=== PATIENT | male | born 1935 | race Caucasian/White ===

== ENCOUNTER 2016-08-16 15:22 | Inpatient (IN) | payer MEDICARE, OTHER ==
[~2016-08-16 15:22] MED LIST: ADULT ASPIRIN81 MG PO; ALBUTEROL; ALBUTEROL SULF8.5 GM INH; ALBUTEROL17 GM INH; ALBUTEROL2.5 MG/3 M INH; ASMANEX; ASMANEX0 IH; ASPIR-LOW81 M1 PO; AUGMENTIN 875-1 EAC2 PO; AZITHROMYCIN250 M1 PO; CARTIA XT240 MG; COD LIVER OIL1 ML PO; COD LIVER OIL473 ML PO; COMBIVENT INH14.7 GM; COUMADIN1 MG; COUMADIN3 MG; COUMADIN5 MG; COUMADIN6 MG PO; DELTASONE10 MG PO; DIFLUCAN100 M1 PO; DILTIAZEM 24HR240 M2 PO; DILTIAZEM 24HR240 MG PO; FERROUS SULFAT325 MG PO; FINASTERIDE5 M1 PO; FINASTERIDE5 M2 PO; FLAGYL500 M1 PO; FLECAINIDE ACE100 M1 PO; FLECAINIDE ACE100 MG; FLECAINIDE ACE100 MG PO; FLOMAX0.4 M1 PO; FLOMAX0.4 MG PO; FLONASE16 G1; FLUTICASONE P15.8 ML; FORADIL12 MCG; FORMOTEROL FUM0.5 GM; FORMOTEROL FUM0.5 GM MC; HYDROCHLOROTHIA25 MG; IRON SUPPLEMEN325 MG; ISONIAZID300 MG PO; LEVAQUIN250 M3 PO; LEVAQUIN750 MG PO; MAXIPIME1 G/VIAL IV; MIRALAX12 EA PO; MIRALAX17 G2 PO; MOMETASONE FUROATE; MUCINEX600 M1 PO; MUCINEX600 MG PO; MULTI VITAMIN1 EAC1 PO; MULTIVITAMINS1 EAC7 PO; NORCO 5/3251 TAB PO; OMEPRAZOLE40 M2 PO; OXYGEN; PHENAZOPYRIDIN200 MG PO; PREDNISONE10 MG PO; PREDNISONE20 MG PO; PROAIR HFA8.5 GM INH; PYRIDOXINE HCL50 MG PO; SPIRIVA18 MC1 INH; SPIRIVA18 MCG IH; SYMBICORT 160-1 PUFF INH; SYMBICORT 16010.2 GM IH; VANCOMYCIN HCL125 M1 PO; ZOCOR10 MG; ZOCOR10 MG PO; ZOCOR20 MG PO
[2016-08-16] MEDS ORDERED: CIPRO250 M2 PO (15:27)
[2016-08-16] MEDS ORDERED: ZITHROMAX250 M1 PO (15:28)
[2016-08-16] MEDS ORDERED: PREDNISONE10 M1 PO (15:29)
[2016-08-16] MEDS ORDERED: POTASSIUM CHLO10 ME2 PO (15:29)
[2016-08-16] MEDS ORDERED: BROVANA15 MCG/22 INH (15:31)
[2016-08-16] MEDS ORDERED: PULMICORT0.5 MG/22 INH (15:32)
[2016-08-16 16:10] LABS: BASO % 0.1 % (0-2); HCT-HEMATOCRIT 35.6 % (36.0-53.5); HGB-HEMOGLOBIN 11.2 gm/dl (13.5-17.0); IMMATURE GRANULOCYTES ABSOLUTE 0.04 tho/cmm (0-0.03); IMMATURE GRANULOCYTES PERCENT 0.3 % (0-0.3); LYMPH % 3.9 % (20-45); LYMPH ABSOLUTE COUNT 0.6 tho/cmm (0.8-4.5); MCH (MEAN CORPUSCULAR HGB) 32.7 pg (28.0-32.0); MCHC MEAN CORPUSCULAR HGB CONC 31.5 % (32.0-36.0); MCV (MEAN CELL VOLUME) 103.8 fl (82.0-96.0); MEAN PLATELET VOLUME 9.7 cmc (9.4-12.4); MONO % 3.7 % (0-12); MONOCYTE ABSOLUTE COUNT 0.6 tho/cmm (0.0-1.2); NEUTROPHIL ABSOLUTE COUNT 13.5 tho/cmm (1.6-8.0); NEUTROPHIL-AUTOMATED 13.5 tho/cmm (1.6-8.0); PLATELET COUNT 218 tho/cmm (150-450); RED BLOOD COUNT 3.43 mil/cmm (4.40-5.70); RED CELL DISTRIBUTION WIDTH 13.7 % (12.4-16.4); WHITE BLOOD COUNT 14.7 tho/cmm (4.0-10.0)
[2016-08-16 16:14] LABS: INR 1.2 INR (0.9-1.1); PROTHROMBIN TIME 13.9 SECONDS (9.0-13.6)
[2016-08-16 16:28] LABS: ALB/GLOB RATIO 0.5 (0.8-2.0); ALBUMIN 2.8 g/dl (3.5-5.0); ALKALINE PHOSPHATASE 67 U/L (33-138); BILIRUBIN,TOTAL 0.4 mg/dl (0.0-1.5); BLOOD UREA NITROGEN 25 mg/dl (6-24); CALCIUM 9.3 mg/dl (8.5-10.5); CARBON DIOXIDE-VENOUS 31 mmol/L (22-32); CHLORIDE 101 mmol/l (96-110); CREATININE 1.36 mg/dl (0.60-1.30); GLUCOSE 153 mg/dL (70-110); SODIUM 140 mmol/L (135-145); eGFR VALUE FOR BLACK 57 mL/Min
[2016-08-16 16:29] LABS: ALT/SGPT 12 U/L (12-78); ANION GAP 13 mmol/L (0-20); AST/SGOT 21 U/L (10-40); POTASSIUM 5.1 mmol/L (3.7-5.1)
[2016-08-17 05:19] LABS: URINE APPEARANCE HAZY; URINE BILIRUBIN NEGATIVE (NEG); URINE COLOR PALE YELLOW; URINE GLUCOSE (UA) NEGATIVE (NEG); URINE LEUKOCYTE ESTERASE POSITIVE (NEG); URINE PROTEIN POSITIVE (NEG)
[2016-08-17 05:20] LABS: URINE BLOOD LARGE (NEG); URINE KETONE MODERATE (NEG); URINE NITRITE NEGATIVE (NEG)
[2016-08-17 05:21] LABS: URINE BACTERIA 1+; URINE EPITHELIAL CELLS 0-3 /[HPF] (0-10); URINE RBC 80-100 /[HPF] (0-5); URINE WBC 50-60 /[HPF] (0-5)
[2016-08-17 11:15] LABS: BASO % 0.1 % (0-2); HCT-HEMATOCRIT 36.6 % (36.0-53.5); HGB-HEMOGLOBIN 11.4 gm/dl (13.5-17.0); LYMPH % 3.5 % (20-45); LYMPH ABSOLUTE COUNT 0.5 tho/cmm (0.8-4.5); MCH (MEAN CORPUSCULAR HGB) 32.6 pg (28.0-32.0); MCHC MEAN CORPUSCULAR HGB CONC 31.1 % (32.0-36.0); MCV (MEAN CELL VOLUME) 104.6 fl (82.0-96.0); MONO % 1.3 % (0-12); MONOCYTE ABSOLUTE COUNT 0.2 tho/cmm (0.0-1.2); NEUTROPHIL ABSOLUTE COUNT 12.9 tho/cmm (1.6-8.0); NEUTROPHIL-AUTOMATED 12.9 tho/cmm (1.6-8.0); NEUTROPHILS % 95.1 % (40-80); PLATELET COUNT 229 tho/cmm (150-450); RED CELL DISTRIBUTION WIDTH 13.5 % (12.4-16.4); WHITE BLOOD COUNT 13.6 tho/cmm (4.0-10.0)
[2016-08-17 11:24] LABS: BLOOD UREA NITROGEN 23 mg/dl (6-24); CALCIUM 8.9 mg/dl (8.5-10.5); CARBON DIOXIDE-VENOUS 31 mmol/L (22-32); CHLORIDE 98 mmol/l (96-110); SODIUM 137 mmol/L (135-145); eGFR VALUE FOR BLACK 66 mL/Min
[2016-08-17 11:26] LABS: ANION GAP 12 mmol/L (0-20); GLUCOSE 385 mg/dL (70-110); POTASSIUM 4.2 mmol/L (3.7-5.1)
[2016-08-17 11:38] LABS: PROCALCITONIN 0.06 ng/ml (0.05-0.09)
[2016-08-18 05:20] LABS: ABG CO2 ARTERIAL 29 mmol/L (21-27); ARTERIAL BLD GAS O2 SATURATION 95 % (95-98); ARTERIAL BLOOD GAS PCO2 42 mmHg (32-45); ARTERIAL PO2 74 mmHg (70-100); BICARBONATE 28 mmol/L (21-28); BLOOD GAS BASE EXCESS 4 mM/L (-/+3); PH 7.45 Units (7.35-7.45)
[2016-08-18 12:03] LABS: BASO % 0.1 % (0-2); HGB-HEMOGLOBIN 11.1 gm/dl (13.5-17.0); IMMATURE GRANULOCYTES ABSOLUTE 0.13 tho/cmm (0-0.03); IMMATURE GRANULOCYTES PERCENT 0.9 % (0-0.3); LYMPH % 4.6 % (20-45); LYMPH ABSOLUTE COUNT 0.6 tho/cmm (0.8-4.5); MCH (MEAN CORPUSCULAR HGB) 32.3 pg (28.0-32.0); MCHC MEAN CORPUSCULAR HGB CONC 31.7 % (32.0-36.0); MCV (MEAN CELL VOLUME) 101.7 fl (82.0-96.0); MEAN PLATELET VOLUME 9.8 cmc (9.4-12.4); MONO % 5.6 % (0-12); MONOCYTE ABSOLUTE COUNT 0.8 tho/cmm (0.0-1.2); NEUTROPHIL ABSOLUTE COUNT 12.3 tho/cmm (1.6-8.0); NEUTROPHIL-AUTOMATED 12.3 tho/cmm (1.6-8.0); NEUTROPHILS % 88.8 % (40-80); PLATELET COUNT 197 tho/cmm (150-450); RED BLOOD COUNT 3.44 mil/cmm (4.40-5.70); RED CELL DISTRIBUTION WIDTH 13.9 % (12.4-16.4); WHITE BLOOD COUNT 13.8 tho/cmm (4.0-10.0)
[2016-08-18 12:20] LABS: ANION GAP 12 mmol/L (0-20); BLOOD UREA NITROGEN 23 mg/dl (6-24); CARBON DIOXIDE-VENOUS 29 mmol/L (22-32); CHLORIDE 103 mmol/l (96-110); CREATININE 0.99 mg/dl (0.60-1.30); GLUCOSE 234 mg/dL (70-110); SODIUM 140 mmol/L (135-145); eGFR VALUE FOR BLACK 84 mL/Min
[2016-08-18 12:21] LABS: POTASSIUM 3.9 mmol/L (3.7-5.1)
[2016-08-19 06:17] LABS: BASO % 0.1 % (0-2); HCT-HEMATOCRIT 33.7 % (36.0-53.5); HGB-HEMOGLOBIN 10.5 gm/dl (13.5-17.0); IMMATURE GRANULOCYTES ABSOLUTE 0.15 tho/cmm (0-0.03); IMMATURE GRANULOCYTES PERCENT 1.3 % (0-0.3); LYMPH % 5.2 % (20-45); LYMPH ABSOLUTE COUNT 0.6 tho/cmm (0.8-4.5); MCHC MEAN CORPUSCULAR HGB CONC 31.2 % (32.0-36.0); MCV (MEAN CELL VOLUME) 102.7 fl (82.0-96.0); MEAN PLATELET VOLUME 9.9 cmc (9.4-12.4); MONO % 3.9 % (0-12); MONOCYTE ABSOLUTE COUNT 0.5 tho/cmm (0.0-1.2); NEUTROPHIL ABSOLUTE COUNT 10.8 tho/cmm (1.6-8.0); NEUTROPHIL-AUTOMATED 10.8 tho/cmm (1.6-8.0); NEUTROPHILS % 89.5 % (40-80); PLATELET COUNT 188 tho/cmm (150-450); RED BLOOD COUNT 3.28 mil/cmm (4.40-5.70); RED CELL DISTRIBUTION WIDTH 13.9 % (12.4-16.4)
[2016-08-19 06:34] LABS: ANION GAP 13 mmol/L (0-20); BLOOD UREA NITROGEN 23 mg/dl (6-24); CALCIUM 8.5 mg/dl (8.5-10.5); CARBON DIOXIDE-VENOUS 30 mmol/L (22-32); CHLORIDE 102 mmol/l (96-110); CREATININE 0.78 mg/dl (0.60-1.30); GLUCOSE 220 mg/dL (70-110); POTASSIUM 3.9 mmol/L (3.7-5.1); SODIUM 141 mmol/L (135-145); eGFR VALUE FOR BLACK >90 mL/Min
[2016-08-19] MEDS ORDERED: CULTURELLE1 EAC1 PO (15:34)
[2016-08-19] MEDS ORDERED: MUCINEX600 M1 PO (15:34)
[2016-08-19] MEDS ORDERED: DELTASONE20 MG PO (15:36)
[2016-08-19] MEDS ORDERED: AUGMENTIN 875-1 EAC2 PO (15:39)
== END 2016-08-19 15:55 | disposition home health service (06) | DRG 190 ==
LOC: EDMED 15:22 → EMR2 18:47 → 5WE 20:00
PROVIDERS: Emergency Medicine; Hospitalist; Internal Medicine Pulmonary Disease; ADMIT Internal Medicine
PROC: 5A09457 Assistance with Respiratory Ventilation, 24-96 Consecutive Hours, Continuous Positive Airway Pressure (ICD-10-PCS; principal; 2016-08-16)
DX: J44.0 Chronic obstructive pulmonary disease with (acute) lower respiratory infection (principal); J69.0 Pneumonitis due to inhalation of food and vomit; N17.9 Acute kidney failure, unspecified; J96.11 Chronic respiratory failure with hypoxia; R13.12 Dysphagia, oropharyngeal phase; J44.1 Chronic obstructive pulmonary disease with (acute) exacerbation; R33.9 Retention of urine, unspecified; G47.33 Obstructive sleep apnea (adult) (pediatric); R31.9 Hematuria, unspecified; I48.91 Unspecified atrial fibrillation; I10 Essential (primary) hypertension; N40.1 Benign prostatic hyperplasia with lower urinary tract symptoms; E78.5 Hyperlipidemia, unspecified; K21.9 Gastro-esophageal reflux disease without esophagitis; J84.10 Pulmonary fibrosis, unspecified; J47.9 Bronchiectasis, uncomplicated; K59.00 Constipation, unspecified; R73.9 Hyperglycemia, unspecified; T38.0X5A Adverse effect of glucocorticoids and synthetic analogues, initial encounter; Y92.230 Patient room in hospital as the place of occurrence of the external cause; D72.829 Elevated white blood cell count, unspecified; Z99.81 Dependence on supplemental oxygen; Z85.51 Personal history of malignant neoplasm of bladder; Z85.038 Personal history of other malignant neoplasm of large intestine; Z79.52 Long term (current) use of systemic steroids; Z85.810 Personal history of malignant neoplasm of tongue; Z79.82 Long term (current) use of aspirin
CPT/HCPCS: G8978-GP-CJ; G8979-GP-CI; G8996-GN-CI; G8997-GN-CI; J0456; J0696; J2405; J2543; J2920; J7030; J7050; J7512